=== PATIENT | female | born 1970 | race Caucasian/White ===

== ENCOUNTER 2016-11-05 09:26 | Emergency (ER) | payer OTHER ==
[~2016-11-05] VITALS: Ht 157.5 cm; Wt 85.3 kg
[~2016-11-05 09:26] MED LIST: AMOXICILLIN500 MG PO; PEN-VEE K,VEET500 MG PO; ULTRAM50 MG PO
[2016-11-05] MEDS ORDERED: MOTRIN600 MG PO (11:17)
[2016-11-05] MEDS ORDERED: AMOXICILLIN500 MG PO (11:17)
[2016-11-05 11:36] VITALS: BP 153/84
== END 2016-11-05 11:38 | disposition home or self-care (01) ==
LOC: EME 09:26
DX: K02.9 Dental caries, unspecified (principal); M79.7 Fibromyalgia
CPT/HCPCS: 99281; 99283